=== PATIENT | female | born 1970 | race Caucasian/White ===

== ENCOUNTER → 2016-12-14 | Outpatient (REF) | payer MEDICAID ==
[~2016-12-14] MED LIST: /ESOM40CA OR; AMLO10TAB OR; CARV12.5 OR; CETI10TA OR; COLA100C2 OR; FERR325T OR; GLIP5TAB77 OR; INSULIN LANTUS SC; LISI10TA4 OR; SALINE NASAL SPRAY; ZOCO5TAB OR; [UNRECOGNIZED DRUG - OTHER] PO; lactobacillus PO; nystatin powder TOP
[2016-12-14 12:55] LABS: ALBUMIN/GLOBULIN RATIO 1.08 (1.00-1.93); ALKALINE PHOSPHATASE 93 U/L (45-117); ALT/SGPT 27 U/L (12-78); ANION GAP 7 MEQ/L (8-16); AST/SGOT 19 U/L (15-37); BILIRUBIN,TOTAL 0.6 MG/DL (0.2-1.0); BLOOD UREA NITROGEN 20 MG/DL (7-18); CALCIUM LEVEL 9.2 MG/DL (8.5-10.1); CARBON DIOXIDE LEVEL 30 MEQ/L (21-32); CHLORIDE LEVEL 102 MEQ/L (98-107); CHOLESTEROL LEVEL 138 MG/DL (<200); CREATININE FOR GFR 0.82 MG/DL (0.55-1.02); GLOMERULAR FILTRATION RATE > 60.0 (>58); GLUCOSE, FASTING 131 MG/DL (70-105); POTASSIUM SERUM 4.6 MEQ/L (3.5-5.1); SODIUM LEVEL 139 MEQ/L (136-145); TOTAL PROTEIN 7.7 GM/DL (6.4-8.2); TRIGLYCERIDES LEVEL 184 MG/DL (<150)
== END ==
LOC: M SFHCPLAZ 09:57
PROVIDERS: ATTEND Physician Assistant
DX: E78.2 Mixed hyperlipidemia (principal); E11.9 Type 2 diabetes mellitus without complications

== ENCOUNTER → 2016-12-23 | Outpatient (CLI) | payer MEDICAID ==
[2016-12-23 18:14] LABS: VITAMIN B12 LEVEL 1850 PG/ML (247-911)
[2016-12-23 18:19] LABS: ALBUMIN 3.7 GM/DL (3.2-5.2); ALBUMIN/GLOBULIN RATIO 1.09 (1.00-1.93); ALKALINE PHOSPHATASE 95 U/L (45-117); ALT/SGPT 27 U/L (12-78); ANION GAP 8 MEQ/L (8-16); AST/SGOT 21 U/L (15-37); BILIRUBIN,TOTAL 0.6 MG/DL (0.2-1.0); BLOOD UREA NITROGEN 19 MG/DL (7-18); CARBON DIOXIDE LEVEL 31 MEQ/L (21-32); CHLORIDE LEVEL 105 MEQ/L (98-107); CREATININE FOR GFR 0.83 MG/DL (0.55-1.02); FERRITIN 275 NG/ML (8-252); GLOMERULAR FILTRATION RATE > 60.0 (>58); GLUCOSE, FASTING 126 MG/DL (70-105); MAGNESIUM LEVEL 1.7 MG/DL (1.8-2.4); PHOSPHORUS LEVEL 3.4 MG/DL (2.5-4.9); POTASSIUM SERUM 4.5 MEQ/L (3.5-5.1); SODIUM LEVEL 144 MEQ/L (136-145); TOTAL PROTEIN 7.1 GM/DL (6.4-8.2)
[2016-12-23 18:45] LABS: BASO % 0.6 % (0.0-1.0); EOS % 0.6 % (0.0-3.0); LARGE UNSTAINED CELL # 0.1 K/mm3 (0.0-0.4); LARGE UNSTAINED CELL % 1.2 % (0.0-4.0); MEAN CORPUSCULAR HEMOGLOBIN 30.5 pg (27.0-33.0); MEAN CORPUSCULAR HGB CONC 33.7 g/dl (32.0-36.5); MEAN CORPUSCULAR VOLUME 90.5 fl (80.0-96.0); MONO # 0.4 K/mm3 (0.0-0.8); MONO % 4.6 % (0.0-5.0); NEUTROPHILS # 5.7 K/mm3 (1.8-7.7); PLATELET COUNT, AUTOMATED 284 k/mm3 (150-450); RED CELL DISTRIBUTION WIDTH 14.4 % (11.5-14.5); WHITE BLOOD COUNT 8.3 K/mm3 (4.0-10.0)
[2016-12-27 10:07] LABS: PRETREATED FOLATE FOR RBCFOL 15.6 NG/ML
== END ==
LOC: M WUC 10:45
PROVIDERS: ATTEND Surgery
DX: K91.2 Postsurgical malabsorption, not elsewhere classified (principal); Z98.84 Bariatric surgery status

== ENCOUNTER → 2017-02-07 | Outpatient (REF) | payer MEDICAID | LOC: M SFHCPLAZ 13:05 | PROVIDERS: ATTEND Physician Assistant | DX: E11.9 Type 2 diabetes mellitus without complications (principal) ==

== ENCOUNTER 2017-04-08 12:30 | Emergency (ER) | payer MEDICAID ==
[~2017-04-08] VITALS: Ht 160 cm; Wt 118.8 kg
[2017-04-08] MEDS ORDERED: MAGN30TA2 PO (12:40)
[2017-04-08] MEDS ORDERED: FLINCHW PO (12:40)
[2017-04-08] MEDS ORDERED: VITA100T20 PO (12:40)
[2017-04-08] MEDS ORDERED: VITA100041 PO (12:40)
[2017-04-08 13:34] LABS: BASO % 0.5 % (0.0-1.0); EOS # 0.1 K/mm3 (0.0-0.50); EOS % 1.1 % (0.0-3.0); LARGE UNSTAINED CELL # 0.1 K/mm3 (0.0-0.4); LYMPH % 19.8 % (24.0-44.0); MEAN CORPUSCULAR HGB CONC 34.8 g/dl (32.0-36.5); MEAN CORPUSCULAR VOLUME 89.1 fl (80.0-96.0); MONO # 0.5 K/mm3 (0.0-0.8); MONO % 5.4 % (0.0-5.0); NEUTROPHILS # 7.1 K/mm3 (1.8-7.7); NEUTROPHILS % 72.3 % (36.0-66.0); PLATELET COUNT, AUTOMATED 242 k/mm3 (150-450); WHITE BLOOD COUNT 9.8 K/mm3 (4.0-10.0)
[2017-04-08 13:54] LABS: ALBUMIN 3.4 GM/DL (3.2-5.2); ALBUMIN/GLOBULIN RATIO 0.97 (1.00-1.93); ALKALINE PHOSPHATASE 110 U/L (45-117); ALT/SGPT 28 U/L (12-78); ANION GAP 9 MEQ/L (8-16); AST/SGOT 18 U/L (15-37); BILIRUBIN,DIRECT 0.1 MG/DL (0.0-0.2); BILIRUBIN,TOTAL 0.3 MG/DL (0.2-1.0); BLOOD UREA NITROGEN 17 MG/DL (7-18); CALCIUM LEVEL 7.9 MG/DL (8.5-10.1); CARBON DIOXIDE LEVEL 27 MEQ/L (21-32); CHLORIDE LEVEL 106 MEQ/L (98-107); CREATININE FOR GFR 0.99 MG/DL (0.55-1.02); GLOMERULAR FILTRATION RATE > 60.0 (>58); GLUCOSE, FASTING 140 MG/DL (70-105); POTASSIUM SERUM 4.1 MEQ/L (3.5-5.1); SODIUM LEVEL 142 MEQ/L (136-145); TOTAL PROTEIN 6.9 GM/DL (6.4-8.2)
--- NOTE | 2017-04-08 14:12 | REP ---
CT BRAIN WITHOUT CONTRAST: CT brain is performed without IV contrast. The ventricles are normal in size and position. There is no midline shift. No abnormal densities are seen. Alexander-white differentiation is well maintained. There is no acute hemorrhage. There is no extra-axial fluid collection. Bone window examination is unremarkable. Visualized mastoids and paranasal sinuses appear clear. IMPRESSION: Negative noncontrast CT brain. Signed by Luis Alexander MD 04/08/2017 07:49 P
[2017-04-08] MEDS ORDERED: PRED20TA PO (14:44)
[2017-04-08] MEDS ORDERED: ACYC1CAP8 PO (14:45)
[2017-04-08] MEDS ORDERED: LACROIN OP (14:47)
[2017-04-08 14:52] VITALS: BP 136/77
--- NOTE | 2017-04-08 16:48 | ECGEPIP ---
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
[2017-04-12 00:06] LABS: Lyme Disease IgG/IgM Antibodie <0.91 ISR (0.00-0.90); Lyme Disease IgM Ab Quantitati <0.80 index (0.00-0.79)
== END 2017-04-08 14:58 | disposition home or self-care (01) ==
LOC: M ED 13:48
DX: G51.0 Bell's palsy (principal)

== ENCOUNTER → 2017-05-18 | Outpatient (CLI) | payer OTHER ==
[~2017-05-18] MED LIST changes: +ACYC1CAP8 PO; +FLINCHW PO; +LACROIN OP; +MAGN30TA2 PO; +PRED20TA PO; +VITA100041 PO; +VITA100T20 PO
== END ==
LOC: M WUC 10:57
PROVIDERS: ATTEND Psychiatry & Neurology Neurology
DX: H04.129 Dry eye syndrome of unspecified lacrimal gland (principal)

== ENCOUNTER 2017-07-06 14:04 | Emergency (ER) | payer OTHER ==
[~2017-07-06] VITALS: Ht 160 cm; Wt 131.6 kg
[~2017-07-06 14:04] MED LIST changes: -ACYC1CAP8 PO; +ACYC200C8 PO; +VITA-182 PO; -VITA100041 PO
[2017-07-06] MEDS ORDERED: ALLO10TA PO (14:27)
[2017-07-06] MEDS ORDERED: LISI10TA4 PO (14:40)
[2017-07-06] MEDS ORDERED: CORE6.25 PO (14:40)
[2017-07-06] MEDS ORDERED: CARVedilol 6.25 MG TAB PO ONE (15:15)
[2017-07-06] MEDS ORDERED: LISINOPRIL 10 MG TAB PO ONE (15:15)
[2017-07-06 15:24] VITALS: BP 195/81
[2017-07-06 15:41] VITALS: BP 140/67
== END 2017-07-06 15:59 | disposition home or self-care (01) ==
LOC: M ED 14:04
DX: I10 Essential (primary) hypertension (principal); Z91.14 Patient's other noncompliance with medication regimen; E11.9 Type 2 diabetes mellitus without complications; Z98.84 Bariatric surgery status

== ENCOUNTER 2017-09-14 09:03 | Emergency (ER) | payer OTHER ==
[~2017-09-14] VITALS: Ht 160 cm; Wt 123.6 kg
[~2017-09-14 09:03] MED LIST changes: +ALLO10TA PO; +CORE6.25 PO; +LISI10TA4 PO
[2017-09-14] MEDS ORDERED: POTA10TAB PO (09:26)
[2017-09-14] MEDS ORDERED: ACETAMINOPHEN TAB 650MG DOSE (2X325MG) PO ONE (10:15)
--- NOTE | 2017-09-14 11:08 | REP ---
Right lower extremity Duplex Doppler venous ultrasound: Real time compression and duplex Doppler interrogation of the right lower extremity deep venous system is performed. The right common femoral, superficial femoral and popliteal veins are fully compressible with transducer pressure and demonstrate normal spontaneous and phasic flow, without evidence of deep venous thrombosis. Impression: No evidence of deep venous thrombosis of the right lower extremity femoral popliteal venous system. Signed by Luis Alexander MD 09/14/2017 11:00 A
--- NOTE | 2017-09-14 12:35 | REP ---
RIGHT ANKLE, FOUR VIEWS: HISTORY: Swelling. COMPARISON: 07/22/2015. There is no acute fracture or dislocation. The joint space is normal in appearance. Osteophytes are present on the medial malleolus and inferior and posterior calcaneus. An accessory ossicle is present adjacent to the medial malleolus. Soft tissue swelling is present. IMPRESSION: Degenerative change as described above. Signed by Jarrod Christensen MD 09/14/2017 01:29 P
[2017-09-14 12:39] LABS: MEAN CORPUSCULAR HEMOGLOBIN 30.2 pg (27.0-33.0); MEAN CORPUSCULAR HGB CONC 34.6 g/dl (32.0-36.5); MEAN CORPUSCULAR VOLUME 87.2 fl (80.0-96.0); PLATELET COUNT, AUTOMATED 362 10^3/uL (150-450); RED CELL DISTRIBUTION WIDTH 14.1 % (11.5-14.5); WHITE BLOOD COUNT 12.9 10^3/uL (4.0-10.0)
[2017-09-14 12:51] LABS: INR 1.01
[2017-09-14 13:16] LABS: ANION GAP 4 MEQ/L (8-16); BLOOD UREA NITROGEN 23 MG/DL (7-18); CALCIUM LEVEL 9.5 MG/DL (8.5-10.1); CARBON DIOXIDE LEVEL 31 MEQ/L (21-32); CHLORIDE LEVEL 102 MEQ/L (98-107); CREATININE FOR GFR 0.85 MG/DL (0.55-1.02); GLOMERULAR FILTRATION RATE > 60.0 (>58); GLUCOSE, FASTING 164 MG/DL (70-105); MAGNESIUM LEVEL 1.7 MG/DL (1.8-2.4); POTASSIUM SERUM 4.5 MEQ/L (3.5-5.1); SODIUM LEVEL 137 MEQ/L (136-145)
[2017-09-14] MEDS ORDERED: ROBA500T PO (13:44)
[2017-09-14] MEDS ORDERED: METHOCARBAMOL 500 MG TAB PO ONE (14:00)
[2017-09-14 14:12] VITALS: BP 117/77
== END 2017-09-14 14:29 | disposition home or self-care (01) ==
LOC: M ED 09:03
DX: K31.89 Other diseases of stomach and duodenum (principal); M25.571 Pain in right ankle and joints of right foot; R73.9 Hyperglycemia, unspecified; Z98.84 Bariatric surgery status

== ENCOUNTER → 2017-09-20 | Outpatient (REF) | payer OTHER ==
[~2017-09-20] MED LIST changes: +POTA10TAB PO; +ROBA500T PO
== END ==
LOC: M SFHCPLAZ 15:18
PROVIDERS: ATTEND Family Medicine
DX: E83.42 Hypomagnesemia (principal)

== ENCOUNTER 2017-10-31 07:25 | Emergency (ER) | payer OTHER ==
[~2017-10-31] VITALS: Ht 160 cm; Wt 131.8 kg
[2017-10-31] MEDS ORDERED: TESS100C PO (09:02)
[2017-10-31 09:11] VITALS: BP 149/88
== END 2017-10-31 09:14 | disposition home or self-care (01) ==
LOC: M ED 07:25
DX: J06.9 Acute upper respiratory infection, unspecified (principal); E11.9 Type 2 diabetes mellitus without complications; Z87.09 Personal history of other diseases of the respiratory system; Z98.84 Bariatric surgery status; Z79.899 Other long term (current) drug therapy

== ENCOUNTER → 2018-02-14 | Outpatient (REF) | payer OTHER ==
[2018-02-14 11:43] LABS: ANION GAP 11 MEQ/L (8-16); BLOOD UREA NITROGEN 14 MG/DL (7-18); CALCIUM LEVEL 8.2 MG/DL (8.5-10.1); CARBON DIOXIDE LEVEL 24 MEQ/L (21-32); CHLORIDE LEVEL 106 MEQ/L (98-107); CREATININE FOR GFR 0.73 MG/DL (0.55-1.30); GLOMERULAR FILTRATION RATE > 60.0 (>58); GLUCOSE, FASTING 243 MG/DL (70-100); MAGNESIUM LEVEL 1.2 MG/DL (1.8-2.4); POTASSIUM SERUM 4.3 MEQ/L (3.5-5.1); SODIUM LEVEL 141 MEQ/L (136-145)
[2018-02-14 11:48] LABS: ESTIMATED AVERAGE GLUCOSE 166 MG/DL (60-110); HEMOGLOBIN A1c 7.4 %
== END ==
LOC: M SFHCPLAZ 10:10
DX: E11.9 Type 2 diabetes mellitus without complications (principal); E83.42 Hypomagnesemia

== ENCOUNTER → 2018-02-21 | Outpatient (REF) | payer OTHER ==
[2018-02-21 13:32] LABS: IONIZED CALCIUM 4.6 MG/DL (4.5-5.3)
[2018-02-21 14:11] LABS: ANION GAP 9 MEQ/L (8-16); BLOOD UREA NITROGEN 22 MG/DL (7-18); CALCIUM LEVEL 8.7 MG/DL (8.5-10.1); CARBON DIOXIDE LEVEL 24 MEQ/L (21-32); CHLORIDE LEVEL 104 MEQ/L (98-107); CREATININE FOR GFR 0.67 MG/DL (0.55-1.30); GLOMERULAR FILTRATION RATE > 60.0 (>58); GLUCOSE, FASTING 187 MG/DL (70-100); MAGNESIUM LEVEL 1.4 MG/DL (1.8-2.4); POTASSIUM SERUM 4.6 MEQ/L (3.5-5.1); SODIUM LEVEL 137 MEQ/L (136-145)
== END ==
LOC: M SFHCPLAZ 12:08
DX: E83.42 Hypomagnesemia (principal)
CPT/HCPCS: 36415

== ENCOUNTER 2018-03-30 16:27 | Emergency (ER) | payer OTHER ==
[2018-03-30] MEDS: NORCO, ANEXSIA 5/325MG TABLET (HYDROcodone/ACETAMINOPHEN) PO (16:42)
== END 2018-03-30 17:33 | disposition home or self-care (01) ==
LOC: M ED 16:27
DX: S83.92XA Sprain of unspecified site of left knee, initial encounter (principal); X50.9XXA Other and unspecified overexertion or strenuous movements or postures, initial encounter; Y92.009 Unspecified place in unspecified non-institutional (private) residence as the place of occurrence of the external cause; I10 Essential (primary) hypertension; E11.9 Type 2 diabetes mellitus without complications; Z86.69 Personal history of other diseases of the nervous system and sense organs; Z98.0 Intestinal bypass and anastomosis status; Z83.3 Family history of diabetes mellitus; Z79.899 Other long term (current) drug therapy
CPT/HCPCS: 73564

== ENCOUNTER 2018-08-10 16:37 | Emergency (ER) | payer OTHER ==
[2018-08-10] MEDS: BENZONATATE 100 MG CAP PO (20:50)
[2018-08-10] MEDS: dexameTHASONE 4 MG/ML 1ML VIAL (J1100) PO (20:50)
== END 2018-08-10 21:02 | disposition home or self-care (01) ==
LOC: M ED 16:37
DX: J06.9 Acute upper respiratory infection, unspecified (principal); I10 Essential (primary) hypertension; E11.9 Type 2 diabetes mellitus without complications; G51.0 Bell's palsy; J32.9 Chronic sinusitis, unspecified; G47.33 Obstructive sleep apnea (adult) (pediatric); Z79.899 Other long term (current) drug therapy; Z79.2 Long term (current) use of antibiotics
CPT/HCPCS: J1100

== ENCOUNTER 2018-11-23 10:26 | Emergency (ER) | payer OTHER ==
[~2018-11-23] VITALS: Ht 160 cm; Wt 135.4 kg
[~2018-11-23 10:26] MED LIST changes: +AMMO12LO; +CLIN1LOT; +FLON1SPR NARES; +KETO2CR; +KETO2SH; +MAGICMW SS; +MINO100C4 PO; +NORCOTAB PO; +NU-M1TAB PO; +POTA10808 PO; -POTA10TAB PO; +ROLLMIS2 XX; +TESS100C PO
[2018-11-23 10:27] VITALS: BP 118/59
[2018-11-23] MEDS ORDERED: GABA-845 PO (10:50)
--- NOTE | 2018-11-23 11:26 | REP ---
Clinical: Trauma/fall. Comparison: 09/14/2017 Technique: AP, lateral, bilateral oblique views of the right ankle. Findings: Diffuse swelling is appreciated. Small bony fragments are identified at the medial malleolus and to a lesser extent the lateral malleolus which remain stable compared to prior examination and consistent with old injuries. No further obvious acute fracture identified. Ankle mortise intact. Lateral view demonstrates small calcaneal heal spur. Impression: Soft-tissue swelling. Evidence for old injuries. No acute fracture or dislocation identified. Electronically Signed by Ok Mohamud MD 11/23/2018 11:17 A
[2018-11-23] MEDS ORDERED: ACETAMINOPHEN 325 MG TAB PO ONE (11:30)
== END 2018-11-23 11:50 | disposition home or self-care (01) ==
LOC: M ED 10:26
DX: S99.911A Unspecified injury of right ankle, initial encounter (principal); X50.9XXA Other and unspecified overexertion or strenuous movements or postures, initial encounter; Y92.018 Other place in single-family (private) house as the place of occurrence of the external cause; I10 Essential (primary) hypertension; E11.9 Type 2 diabetes mellitus without complications; Z98.84 Bariatric surgery status; Z79.899 Other long term (current) drug therapy; Z91.048 Other nonmedicinal substance allergy status

== ENCOUNTER → 2019-01-30 | Outpatient (CLI) | payer OTHER ==
[~2019-01-30] MED LIST changes: +GABA-845 PO
--- NOTE | 2019-01-30 14:27 | REP ---
MRI RIGHT ANKLE: TECHNIQUE: Sagittal proton density, STIR, axial proton density fat sat, T1, coronal proton density, STIR. Correlation to prior plain films . The Achilles, anterior tibial, posterior tibial, flexor hallucis longus, flexor digitorum longus and peroneal tendons all appear to be intact. However, there is mild fluid surrounding the peroneal tendon suggesting mild tenosynovitis. Anterior talofibular ligament is ill-defined with mild increased signal suggesting a prior tear, at least a partial tear. Posterior talofibular and calcaneofibular ligaments appear intact. Deltoid ligament demonstrates mild diffuse increased signal suggesting a sprain. Old avulsion fractures are seen at both malleoli. Plantar tendon is intact with no abnormal signal. There is a mild effusion at the tibiotalar joint. There is mild diffuse soft tissue edema, which is a nonspecific findings. There is no ganglion cyst. There is mild marrow edema in the medial and lateral malleoli. There is also mild subchondral marrow edema in the lateral talar dome overlying cartilaginous thinning. This may represent a stage I osteochondral lesion. IMPRESSION: Mild fluid around the peroneal tendons may indicate tenosynovitis. Abnormal signal in the anterior talofibular ligament suggesting at least a prior partial tear. Increased signal in the deltoid ligament suggests a sprain or prior partial tear. There are old avulsion fractures of the medial and lateral malleoli with associated marrow edema at these locations. Chondromalacia along the talar dome with subchondral marrow edema in the lateral talar dome. This may indicate a stage I osteochondral lesion. Electronically Signed by Luis Alexander MD 01/30/2019 11:33 P
== END ==
LOC: M RAD 12:40
PROVIDERS: ATTEND Family Medicine
DX: M25.371 Other instability, right ankle (principal); M94.261 Chondromalacia, right knee; Z87.81 Personal history of (healed) traumatic fracture

== ENCOUNTER → 2019-05-13 | Outpatient (CLI) | payer OTHER ==
[~2019-05-13] MED LIST changes: -/ESOM40CA OR; +HYDR-3715 PO; -KETO2SH; +KETO2SHA9; +NEXI1CAP3 OR; -NORCOTAB PO; -VITA100T20 PO; +VITA100T51 PO
[2019-05-13 13:54] LABS: ALBUMIN 3.5 GM/DL (3.2-5.2); ALT/SGPT 50 U/L (12-78); BILIRUBIN,TOTAL 0.5 MG/DL (0.2-1.0); BLOOD UREA NITROGEN 30 MG/DL (7-18); CALCIUM LEVEL 9.7 MG/DL (8.5-10.1); CARBON DIOXIDE LEVEL 31 MEQ/L (21-32); CHLORIDE LEVEL 101 MEQ/L (98-107); CHOLESTEROL LEVEL 184 MG/DL (<200); CHOLESTEROL RISK RATIO 4.972 (<5); CREATININE FOR GFR 0.93 MG/DL (0.55-1.30); GLOMERULAR FILTRATION RATE > 60.0 (>58); GLUCOSE, FASTING 306 MG/DL (70-100); HDL CHOLESTEROL 37 MG/DL (>40); NON-HDL-C 147 MG/DL; POTASSIUM SERUM 5.3 MEQ/L (3.5-5.1); SODIUM LEVEL 137 MEQ/L (136-145); TOTAL PROTEIN 7.2 GM/DL (6.4-8.2); TRIGLYCERIDES LEVEL 419 MG/DL (<150)
== END ==
LOC: M WUC 09:05
PROVIDERS: ATTEND Physician Assistant
DX: I11.9 Hypertensive heart disease without heart failure (principal); E78.2 Mixed hyperlipidemia

== ENCOUNTER → 2019-05-13 | Outpatient (CLI) | payer OTHER ==
[2019-05-13 13:35] LABS: CALCIUM LEVEL 9.4 MG/DL (8.5-10.1); CHOLESTEROL LEVEL 195 MG/DL (<200); HDL CHOLESTEROL 39 MG/DL (>40); MAGNESIUM LEVEL 2.3 MG/DL (1.8-2.4); NON-HDL-C 156 MG/DL; TRIGLYCERIDES LEVEL 414 MG/DL (<150); URIC ACID 6.2 MG/DL (2.6-6.0)
[2019-05-13 13:51] LABS: BASO # 0.1 10^3/uL (0.0-0.2); BASO % 0.8 % (0.0-1.0); EOS # 0.1 10^3/uL (0.0-0.50); HEMATOCRIT 42.5 % (36.0-47.0); HEMOGLOBIN 14.2 g/dl (12.0-15.5); LYMPH # 1.4 10^3/uL (1.5-4.5); LYMPH % 19.6 % (24.0-44.0); MEAN CORPUSCULAR HEMOGLOBIN 30.4 pg (27.0-33.0); MEAN CORPUSCULAR HGB CONC 33.4 g/dl (32.0-36.5); MONO # 0.6 10^3/uL (0.0-0.8); MONO % 7.9 % (0.0-5.0); PLATELET COUNT, AUTOMATED 228 10^3/uL (150-450); RED BLOOD COUNT 4.67 10^6/uL (4.00-5.40); WHITE BLOOD COUNT 7.2 10^3/uL (4.0-10.0)
[2019-05-13 14:02] LABS: MALB URINE SIEMENS 51.7 MG/L; MAU/CREAT RATIO 36.1 MCG/MG (0.0-30.0)
[2019-05-13 14:15] LABS: HEMOGLOBIN A1c 8.7 %
== END ==
LOC: M WUC 09:00
PROVIDERS: ATTEND Family Medicine
DX: R25.2 Cramp and spasm (principal); E11.65 Type 2 diabetes mellitus with hyperglycemia; E78.2 Mixed hyperlipidemia; Z87.442 Personal history of urinary calculi; E72.53 Primary hyperoxaluria; Z86.2 Personal history of diseases of the blood and blood-forming organs and certain disorders involving the immune mechanism

== ENCOUNTER → 2020-01-18 | Outpatient (REF) | payer OTHER | LOC: M LAB REF 11:31 | PROVIDERS: ATTEND Physician Assistant Medical | DX: J11.1 Influenza due to unidentified influenza virus with other respiratory manifestations (principal) ==

== ENCOUNTER → 2020-02-03 | Outpatient (CLI) | payer OTHER ==
--- NOTE | 2020-02-03 11:33 | REPMRS ---
Patient History The patient states she had a clinical breast exam in January 2020. Family history of breast cancer at age 50 or over in maternal aunt. Digital Woman Screen Mammo: February 03, 2020 - Exam #: [id number] Bilateral CC and MLO view(s) were taken. Technologist: Sandra Rowe, Technologist Prior study comparison: September 15, 2014, digital woman screen mammo performed at [facility]. January 28, 2013, digital woman screen mammo performed at [facility]. January 05, 2007, bilateral screening mammogram performed at [facility]. FINDINGS: There are scattered fibroglandular densities. There is a moderate amount of residual fibroglandular tissue which is fairly symmetric. There is no interval development of dominant mass, architectural distortion, or grouped microcalcification typical of malignancy. There has been no change in the appearance of the mammogram from the prior studies. 3-D tomosynthesis shows no additional findings. Assessment: BI-RADS/ACR category 1 mammogram. Negative Mammogram. Recommendation Routine screening mammogram of both breasts in 1 year (for women over age 40). This patient's Lifetime Breast Cancer RIsk is estimated at 18.5 %. This mammogram was interpreted with the aid of an FDA-approved computer-aided dectection system. Electronically Signed By: Emory Grajeda MD 02/03/20 2141
== END ==
LOC: M WHC 10:22
PROVIDERS: ATTEND Nurse Practitioner Family
DX: Z12.31 Encounter for screening mammogram for malignant neoplasm of breast (principal); Z12.4 Encounter for screening for malignant neoplasm of cervix; R87.618 Other abnormal cytological findings on specimens from cervix uteri

== ENCOUNTER → 2020-07-14 | Outpatient (REF) | payer OTHER ==
[~2020-07-14] MED LIST changes: +KETO2SHA8; -KETO2SHA9
[2020-09-07 03:48] LABS: ALBUMIN 3.2 GM/DL (3.2-5.2); BLOOD UREA NITROGEN 23 MG/DL (7-18); CALCIUM LEVEL 8.8 MG/DL (8.5-10.1); CARBON DIOXIDE LEVEL 26 MEQ/L (21-32); CHLORIDE LEVEL 107 MEQ/L (98-107); CREATININE FOR GFR 0.86 MG/DL (0.55-1.30); GLOMERULAR FILTRATION RATE > 60.0 (>58); GLUCOSE, FASTING 257 MG/DL (70-100); PHOSPHORUS LEVEL 3.5 MG/DL (2.5-4.9); POTASSIUM SERUM 4.5 MEQ/L (3.5-5.1); SODIUM LEVEL 140 MEQ/L (136-145); TOTAL 25(OH) VITAMIN D 18.7 NG/ML (30.0-100.0)
== END ==
LOC: M PLALAB 12:04
PROVIDERS: ATTEND Internal Medicine Nephrology
DX: N20.0 Calculus of kidney (principal); R82.992 Hyperoxaluria

== ENCOUNTER → 2020-07-14 | Outpatient (REF) | payer OTHER ==
[2020-09-07 03:47] LABS: BLOOD UREA NITROGEN 23 MG/DL (7-18); CALCIUM LEVEL 8.8 MG/DL (8.5-10.1); CARBON DIOXIDE LEVEL 27 MEQ/L (21-32); CHLORIDE LEVEL 105 MEQ/L (98-107); CREATININE FOR GFR 0.87 MG/DL (0.55-1.30); GLOMERULAR FILTRATION RATE > 60.0 (>58); GLUCOSE, FASTING 261 MG/DL (70-100); POTASSIUM SERUM 4.5 MEQ/L (3.5-5.1); SODIUM LEVEL 140 MEQ/L (136-145)
[2020-09-07 03:48] LABS: ALBUMIN 3.2 GM/DL (3.2-5.2); ALT/SGPT 28 U/L (12-78); BILIRUBIN,TOTAL 0.3 MG/DL (0.2-1.0); CHOLESTEROL LEVEL 109 MG/DL (<200); CHOLESTEROL RISK RATIO 2.369 (<5); HDL CHOLESTEROL 46 MG/DL (>40); LDL CHOLESTEROL 20 MG/DL (<100); NON-HDL-C 63 MG/DL; TOTAL PROTEIN 6.7 GM/DL (6.4-8.2); TRIGLYCERIDES LEVEL 215 MG/DL (<150)
== END ==
LOC: M PLALAB 12:01
PROVIDERS: ATTEND Physician Assistant
DX: I11.9 Hypertensive heart disease without heart failure (principal); E78.2 Mixed hyperlipidemia

== ENCOUNTER → 2020-09-18 | Outpatient (CLI) | payer OTHER ==
--- NOTE | 2020-09-18 08:19 | REP ---
INDICATION: TYPE 2 DIABETES, CHRONIC ULCER OF THE OTHER PART LEFT FOOT COMPARISON: None. TECHNIQUE: AP, lateral, bilateral oblique views . FINDINGS: Generalized soft tissue swelling suggested. The osseous structures and joint spaces are intact and there is no evidence for acute fracture or dislocation. No subcutaneous emphysema or radiodense foreign body. IMPRESSION: Soft tissue swelling.. <Electronically signed by Ok Mohamud > 09/18/20 [id number]
== END ==
LOC: M RAD 07:52
PROVIDERS: ATTEND Surgery
DX: R22.42 Localized swelling, mass and lump, left lower limb (principal)

== ENCOUNTER → 2020-10-05 | Outpatient (CLI) | payer OTHER ==
--- NOTE | 2020-10-08 12:12 | SLEEPCENT ---
DATE: 10/05/2020 ORDERED BY: Anamaria Montalvo Nocturnal polysomnography was performed for retitration of pressure therapy in this patient with a history of obstructive sleep apnea syndrome, who has accomplished significant weight loss. For testing, a ResMed AirFit F20 full-face mask of medium size was used. There was 8 cm of water pressure initially applied to the circuit, and the lights were extinguished. There was 7 hours and 46 minutes of data reviewed. There was 434 minutes of sleep identified. Sleep latency was normal at 10 minutes. REM latency was delayed at 160 minutes. Sleep architecture improved with optimal pressure therapy. There were four REM cycles noted. Overall sleep efficiency was 94.5%. The electrocardiogram showed a sinus rhythm with an average heart rate of 68 beats per minute. EEG showed normal waveforms for wake and sleep. Respiratory events ere fully palliated with CPAP at a pressure of +9. There was significant limb activity throughout the study. Limb movement arousal index was 7.1. IMPRESSION: Obstructive sleep apnea syndrome (G47.33). RECOMMENDATION: Nightly use of pressure therapy 9 cm of water. MTDD
== END ==
LOC: M SLEEP 20:00
PROVIDERS: ATTEND Nurse Practitioner Adult Health
DX: G47.33 Obstructive sleep apnea (adult) (pediatric) (principal)

== ENCOUNTER → 2021-03-05 | Outpatient (REF) | payer OTHER ==
[~2021-03-05] MED LIST changes: +LISI10TA22 PO; -LISI10TA4 PO
[2021-03-05 10:24] LABS: BASO % 0.5 % (0.0-1.0); EOS # 0.1 10^3/uL (0.0-0.5); EOS % 0.6 % (0.0-3.0); HEMATOCRIT 42.6 % (36.0-47.0); HEMOGLOBIN 14.1 g/dl (12.0-15.5); LYMPH # 1.5 10^3/uL (1.5-5.0); LYMPH % 17.2 % (24.0-44.0); MEAN CORPUSCULAR HEMOGLOBIN 28.8 pg (27.0-33.0); MEAN CORPUSCULAR HGB CONC 33.1 g/dl (32.0-36.5); MEAN CORPUSCULAR VOLUME 86.9 fl (80.0-96.0); MONO # 0.6 10^3/uL (0.0-0.8); MONO % 6.7 % (2.0-8.0); NEUTROPHILS # 6.4 10^3/uL (1.5-8.5); NEUTROPHILS % 74.4 % (36.0-66.0); PLATELET COUNT, AUTOMATED 217 10^3/uL (150-450); WHITE BLOOD COUNT 8.5 10^3/uL (4.0-10.0)
[2021-03-05 10:45] LABS: HEMOGLOBIN A1c 8.7 %
[2021-03-05 10:59] LABS: ALBUMIN 3.5 GM/DL (3.2-5.2); ALT/SGPT 40 U/L (12-78); BILIRUBIN,TOTAL 0.3 MG/DL (0.2-1.0); BLOOD UREA NITROGEN 22 MG/DL (7-18); CALCIUM LEVEL 9.2 MG/DL (8.5-10.1); CARBON DIOXIDE LEVEL 30 MEQ/L (21-32); CHLORIDE LEVEL 101 MEQ/L (98-107); CHOLESTEROL LEVEL 146 MG/DL (<200); CHOLESTEROL RISK RATIO 3.476 (<5); CREATININE FOR GFR 0.95 MG/DL (0.55-1.30); GLOMERULAR FILTRATION RATE > 60.0 (>58); GLUCOSE, FASTING 339 MG/DL (70-100); HDL CHOLESTEROL 42 MG/DL (>40); LDL CHOLESTEROL 52 MG/DL (<100); NON-HDL-C 104 MG/DL; POTASSIUM SERUM 4.6 MEQ/L (3.5-5.1); SODIUM LEVEL 136 MEQ/L (136-145); TRIGLYCERIDES LEVEL 261 MG/DL (<150); VITAMIN B12 LEVEL 491 PG/ML (247-911)
== END ==
LOC: M PLALAB 08:10
PROVIDERS: ATTEND Nurse Practitioner Family
DX: E11.65 Type 2 diabetes mellitus with hyperglycemia (principal); E78.2 Mixed hyperlipidemia; Z98.84 Bariatric surgery status

== ENCOUNTER → 2021-03-30 | Outpatient (REF) | payer OTHER ==
[~2021-03-30] MED LIST changes: +ADME100I2; +ALOG25TA; +ATOR40TA75; +BASA100I; +BECA1GEL; +LINE1TAB6 PO; +POTA10808
== END ==
LOC: M SFHCWAGY 17:04
PROVIDERS: ATTEND Obstetrics & Gynecology
DX: Z12.4 Encounter for screening for malignant neoplasm of cervix (principal); R87.610 Atypical squamous cells of undetermined significance on cytologic smear of cervix (ASC-US)

== ENCOUNTER → 2021-03-30 | Outpatient (CLI) | payer OTHER ==
--- NOTE | 2021-03-30 12:40 | REPMRS ---
Patient History The patient states she had a clinical breast exam on 03-30-2021. Patient is postmenopausal and is nulliparous. Family history of breast cancer at age 50 or over in maternal aunt. No Hormone Replacement Therapy Patient states no breast complaints today. Digital Woman Screen Mammo: March 30, 2021 - Exam #: [id number] Bilateral CC and MLO view(s) were taken. Technologist: Cele Alcantara, Financial Accounting Manager Prior study comparison: February 03, 2020, bilateral digital woman screen mammo performed at [facility]. September 15, 2014, digital woman screen mammo performed at [facility]. FINDINGS: There are scattered fibroglandular densities. Screening. Digital screening (2D) mammography was performed bilaterally in the CC and MLO projections. Additionally, breast tomosynthesis (3D mammography) was performed bilaterally in the CC and MLO projections. Todays exam was compared to the prior exams(s). By history, the patient has no complaints of a palpable breast abnormality or other significant breast complaints. The breasts are unchanged in size and shape. Once again, dense heterogenous nodular fibroglandular elements are seen bilaterally in a stable appearing pattern but to such a degree that the sensitivity of the mammogram in detecting cancer is somewhat decreased.There are no sung-soft tissue densities or spiculated masses. There is no internal architectural distortion. There are no suspicious sung-calcific clusters. Skin thickening or nipple retraction is not present.Once again, stable benign appearing calcifications are seen. IMPRESSION: BI-RADS Category 2- Benign Findings(s). There is no evidence of malignant alteration of the breasts. Followup examination recommended in one year. This mammogram was read with the assistance of [facility] [employer],an FDA approved computer aided detection system for mammography. The Volpara volumetric breast density category is B, there are scattered areas of fibroglandular density. Negative x-ray reports should not delay surgical consultation if a dominant or clinically suspicious mass is present. The lifetime Tyrer-Cuzick score is 17.8 % Not all breast cancers can be identified by mammography. Therefore, we recommend that you continue to perform regular breast self-examination and physical examination and then promptly contact your physician of any concerns or changes. Adenosis and dense breasts may obscure an underlying neoplasm. Assessment: BI-RADS/ACR category 2 mammogram. Benign Findings. Recommendation Routine screening mammogram of both breasts in 1 year. Electronically Signed By: Nino Corona DO 03/30/21 [id number]
== END ==
LOC: M WHC 10:55
PROVIDERS: ATTEND Obstetrics & Gynecology
DX: Z12.39 Encounter for other screening for malignant neoplasm of breast (principal); Z78.0 Asymptomatic menopausal state

== ENCOUNTER → 2021-03-30 | Outpatient (CLI) | payer OTHER | LOC: M WHC 12:06 | PROVIDERS: ATTEND Obstetrics & Gynecology | DX: Z53.29 Procedure and treatment not carried out because of patient's decision for other reasons (principal); Z01.419 Encounter for gynecological examination (general) (routine) without abnormal findings ==

== ENCOUNTER 2021-03-31 07:53 | Emergency (ER) | payer OTHER ==
[~2021-03-31] VITALS: Ht 160 cm; Wt 129.9 kg
[~2021-03-31 07:53] MED LIST changes: -ADME100I2; -ALOG25TA; -ATOR40TA75; -BASA100I; -BECA1GEL; -LINE1TAB6 PO; -POTA10808
[2021-03-31] MEDS ORDERED: ALOG25TA (08:02)
[2021-03-31] MEDS ORDERED: POTA10808 (08:02)
[2021-03-31] MEDS ORDERED: ATOR40TA75 (08:02)
[2021-03-31] MEDS ORDERED: ADME100I2 (08:02)
[2021-03-31] MEDS ORDERED: BASA100I (08:02)
[2021-03-31] MEDS ORDERED: BECA1GEL (08:02)
[2021-03-31] MEDS ORDERED: KETO2SHA8 (08:02)
[2021-03-31 08:48] LABS: BASO # 0.1 10^3/uL (0.0-0.2); BASO % 0.6 % (0.0-1.0); EOS # 0.1 10^3/uL (0.0-0.5); EOS % 0.5 % (0.0-3.0); HEMATOCRIT 38.8 % (36.0-47.0); HEMOGLOBIN 12.9 g/dl (12.0-15.5); LYMPH # 1.8 10^3/uL (1.5-5.0); LYMPH % 18.1 % (24.0-44.0); MEAN CORPUSCULAR HGB CONC 33.2 g/dl (32.0-36.5); MEAN CORPUSCULAR VOLUME 87.2 fl (80.0-96.0); MONO # 0.7 10^3/uL (0.0-0.8); MONO % 7.6 % (2.0-8.0); NEUTROPHILS % 72.2 % (36.0-66.0); PLATELET COUNT, AUTOMATED 218 10^3/uL (150-450); RED BLOOD COUNT 4.45 10^6/uL (4.00-5.40); WHITE BLOOD COUNT 9.7 10^3/uL (4.0-10.0)
[2021-03-31 09:06] LABS: ERYTHROCYTE SEDIMENTATION RATE 43 mm/hr (0-20)
[2021-03-31 09:17] LABS: ALBUMIN 3.4 GM/DL (3.2-5.2); ALT/SGPT 28 U/L (12-78); BILIRUBIN,DIRECT 0.1 MG/DL (0.0-0.2); BILIRUBIN,TOTAL 0.5 MG/DL (0.2-1.0); BLOOD UREA NITROGEN 23 MG/DL (7-18); C REACTIVE PROTEIN QUANTITATIV 0.98 MG/DL (0.00-0.30); CALCIUM LEVEL 8.8 MG/DL (8.5-10.1); CARBON DIOXIDE LEVEL 28 MEQ/L (21-32); CHLORIDE LEVEL 104 MEQ/L (98-107); CREATININE FOR GFR 0.88 MG/DL (0.55-1.30); GLOMERULAR FILTRATION RATE > 60.0 (>58); GLUCOSE, FASTING 282 MG/DL (70-100); POTASSIUM SERUM 4.5 MEQ/L (3.5-5.1); SODIUM LEVEL 137 MEQ/L (136-145); TOTAL PROTEIN 6.9 GM/DL (6.4-8.2)
[2021-03-31] MEDS ORDERED: VANCOMYCIN HCL 2,000 MG in D5W 500 ML IV ONE (09:35)
[2021-03-31] MEDS ORDERED: NS 1,000 ML IV ONE (09:35)
--- NOTE | 2021-03-31 09:53 | REP ---
INDICATION: wound to L 1st toe COMPARISON: None. TECHNIQUE: AP, lateral, bilateral oblique views left 1st toe. FINDINGS: No obvious acute fracture. Bandage material limits evaluation and subcutaneous emphysema related to possible soft tissue injury cannot definitively be excluded. No foreign body. IMPRESSION: Limited examination.. No definite acute fracture or dislocation. <Electronically signed by Ok Mohamud > 03/31/21 0952
[2021-03-31] MEDS ORDERED: VANCOMYCIN HCL 1,000 MG, VIAL MATE ADAPTER 1 EACH in NS 250 ML IV ONE ×6 (10:00)
[2021-03-31 12:53] VITALS: BP 94/55
[2021-03-31] MEDS ORDERED: LINE1TAB6 PO (13:06)
== END 2021-03-31 13:23 | disposition home or self-care (01) ==
LOC: M ED 07:53
DX: E11.622 Type 2 diabetes mellitus with other skin ulcer (principal); L97.529 Non-pressure chronic ulcer of other part of left foot with unspecified severity; G62.9 Polyneuropathy, unspecified; I10 Essential (primary) hypertension; E78.5 Hyperlipidemia, unspecified; G47.33 Obstructive sleep apnea (adult) (pediatric); E66.9 Obesity, unspecified; Z86.14 Personal history of Methicillin resistant Staphylococcus aureus infection; Z86.718 Personal history of other venous thrombosis and embolism; Z86.69 Personal history of other diseases of the nervous system and sense organs; Z98.84 Bariatric surgery status; Z91.048 Other nonmedicinal substance allergy status; Z79.899 Other long term (current) drug therapy; Z79.4 Long term (current) use of insulin
CPT/HCPCS: 73660; 80048; 80076; 83605; 85025; 85652; 86140; 87040; 96365; 96366; 99283; J3370

== ENCOUNTER → 2021-04-28 | Outpatient (REF) | payer OTHER ==
[~2021-04-28] MED LIST changes: +ADME100I2; +ALOG25TA; +ATOR40TA75; +BASA100I; +BECA1GEL; +GABA-283 PO; -GABA-845 PO; +LINE1TAB6 PO; +POTA10808
== END ==
LOC: M PLALAB 14:01
PROVIDERS: ATTEND Obstetrics & Gynecology
DX: N90.89 Other specified noninflammatory disorders of vulva and perineum (principal)

== ENCOUNTER → 2021-04-28 | Outpatient (REF) | payer OTHER | LOC: M SFHCWAGY 18:46 | PROVIDERS: ATTEND Obstetrics & Gynecology | DX: N90.89 Other specified noninflammatory disorders of vulva and perineum (principal) ==

== ENCOUNTER → 2021-09-07 | Outpatient (CLI) | payer OTHER ==
[2021-09-07 11:18] LABS: BASO # 0.1 10^3/uL (0.0-0.2); BASO % 0.5 % (0.0-1.0); EOS # 0.1 10^3/uL (0.0-0.5); EOS % 0.6 % (0.0-3.0); HEMATOCRIT 39.3 % (36.0-47.0); HEMOGLOBIN 12.9 g/dl (12.0-15.5); LYMPH % 20.1 % (24.0-44.0); MEAN CORPUSCULAR HEMOGLOBIN 28.7 pg (27.0-33.0); MEAN CORPUSCULAR HGB CONC 32.8 g/dl (32.0-36.5); MEAN CORPUSCULAR VOLUME 87.3 fl (80.0-96.0); MONO # 0.6 10^3/uL (0.0-0.8); MONO % 6.2 % (2.0-8.0); NEUTROPHILS # 7.2 10^3/uL (1.5-8.5); NEUTROPHILS % 71.9 % (36.0-66.0); PLATELET COUNT, AUTOMATED 226 10^3/uL (150-450); WHITE BLOOD COUNT 10.1 10^3/uL (4.0-10.0)
[2021-09-07 11:44] LABS: ALBUMIN 3.3 GM/DL (3.2-5.2); ALT/SGPT 35 U/L (12-78); BILIRUBIN,TOTAL 0.4 MG/DL (0.2-1.0); BLOOD UREA NITROGEN 25 MG/DL (7-18); CALCIUM LEVEL 9.3 MG/DL (8.5-10.1); CARBON DIOXIDE LEVEL 31 MEQ/L (21-32); CHLORIDE LEVEL 102 MEQ/L (98-107); CHOLESTEROL LEVEL 107 MG/DL (<200); CHOLESTEROL RISK RATIO 2.547 (<5); CREATININE FOR GFR 0.88 MG/DL (0.55-1.30); GLOMERULAR FILTRATION RATE > 60.0 (>51); GLUCOSE, FASTING 280 MG/DL (70-100); HDL CHOLESTEROL 42 MG/DL (>40); IRON (FE) 75 UG/DL (50-170); LDL CHOLESTEROL 21 MG/DL (<100); NON-HDL-C 65 MG/DL; POTASSIUM SERUM 4.7 MEQ/L (3.5-5.1); PTH INTACT 71.2 PG/ML (18.5-88.0); SODIUM LEVEL 139 MEQ/L (136-145); TOTAL 25(OH) VITAMIN D 62.2 NG/ML (30.0-100.0); TOTAL PROTEIN 6.8 GM/DL (6.4-8.2); TRIGLYCERIDES LEVEL 219 MG/DL (<150); URIC ACID 4.3 MG/DL (2.6-6.0); VITAMIN B12 LEVEL 1045 PG/ML (247-911)
[2021-09-07 11:47] LABS: CREATININE, URINE 74.7 MG/DL; MALB URINE SIEMENS 41.3 MG/L; MAU/CREAT RATIO 55.2 MCG/MG (0.0-30.0)
== END ==
LOC: M PLALAB 08:59
PROVIDERS: ATTEND Nurse Practitioner Family
DX: E78.2 Mixed hyperlipidemia (principal); E11.65 Type 2 diabetes mellitus with hyperglycemia; E55.9 Vitamin D deficiency, unspecified; Z98.84 Bariatric surgery status; E72.53 Primary hyperoxaluria

== ENCOUNTER → 2022-07-21 | Outpatient (CLI) | payer OTHER ==
[2022-07-21 12:21] LABS: ALBUMIN 3.4 GM/DL (3.2-5.2); CALCIUM LEVEL 9.5 MG/DL (8.5-10.1); CREATININE FOR GFR 1.05 MG/DL (0.55-1.30); GLOMERULAR FILTRATION RATE 59.1 (>51); PHOSPHORUS LEVEL 3.4 MG/DL (2.5-4.9); POTASSIUM SERUM 4.6 MEQ/L (3.5-5.1); URIC ACID 4.5 MG/DL (2.6-6.0)
[2022-07-21 13:15] LABS: PTH INTACT 61.7 PG/ML (18.5-88.0); TOTAL 25(OH) VITAMIN D 54.3 NG/ML (30.0-100.0)
== END ==
LOC: M PLALAB 08:30
PROVIDERS: ATTEND Internal Medicine Nephrology
DX: N20.0 Calculus of kidney (principal); R82.991 Hypocitraturia; R82.992 Hyperoxaluria; R82.993 Hyperuricosuria

== ENCOUNTER → 2022-07-21 | Outpatient (CLI) | payer OTHER ==
[2022-07-21 11:59] LABS: BASO # 0.1 10^3/uL (0.0-0.2); BASO % 0.5 % (0.0-1.0); EOS # 0.1 10^3/uL (0.0-0.5); EOS % 1.2 % (0.0-3.0); HEMATOCRIT 39.8 % (36.0-47.0); HEMOGLOBIN 13.1 g/dl (12.0-15.5); LYMPH # 1.4 10^3/uL (1.5-5.0); LYMPH % 15.4 % (24.0-44.0); MEAN CORPUSCULAR HEMOGLOBIN 28.9 pg (27.0-33.0); MEAN CORPUSCULAR HGB CONC 32.9 g/dl (32.0-36.5); MEAN CORPUSCULAR VOLUME 87.9 fl (80.0-96.0); MONO # 0.6 10^3/uL (0.0-0.8); MONO % 6.5 % (2.0-8.0); NEUTROPHILS % 75.7 % (36.0-66.0); PLATELET COUNT, AUTOMATED 230 10^3/uL (150-450); RED BLOOD COUNT 4.53 10^6/uL (4.00-5.40); WHITE BLOOD COUNT 9.2 10^3/uL (4.0-10.0)
[2022-07-21 12:31] LABS: ALBUMIN 3.5 GM/DL (3.2-5.2); ALT/SGPT 29 U/L (12-78); BILIRUBIN,TOTAL 0.7 MG/DL (0.2-1.0); BLOOD UREA NITROGEN 31 MG/DL (7-18); CALCIUM LEVEL 9.2 MG/DL (8.5-10.1); CARBON DIOXIDE LEVEL 30 MEQ/L (21-32); CHLORIDE LEVEL 100 MEQ/L (98-107); CHOLESTEROL LEVEL 92 MG/DL (<200); CHOLESTEROL RISK RATIO 2.421 (<5); CREATININE FOR GFR 1.01 MG/DL (0.55-1.30); GLOMERULAR FILTRATION RATE > 60.0 (>51); GLUCOSE, FASTING 192 MG/DL (70-100); HDL CHOLESTEROL 38 MG/DL (>40); LDL CHOLESTEROL 24 MG/DL (<100); NON-HDL-C 54 MG/DL; POTASSIUM SERUM 4.5 MEQ/L (3.5-5.1); SODIUM LEVEL 135 MEQ/L (136-145); TRIGLYCERIDES LEVEL 151 MG/DL (<150); URIC ACID 4.4 MG/DL (2.6-6.0)
[2022-07-21 13:04] LABS: CREATININE, URINE 56.6 MG/DL; MALB URINE SIEMENS 18.4 MG/L; MAU/CREAT RATIO 32.5 MCG/MG (0.0-30.0)
[2022-07-21 13:14] LABS: HEMOGLOBIN A1c 7.1 %; TOTAL 25(OH) VITAMIN D 56.5 NG/ML (30.0-100.0); VITAMIN B12 LEVEL > 2000 PG/ML (247-911)
[2022-07-21 13:15] LABS: FOLATE 6.4 NG/ML (>5.4)
== END ==
LOC: M PLALAB 08:28
PROVIDERS: ATTEND Nurse Practitioner Family
DX: E11.9 Type 2 diabetes mellitus without complications (principal); I10 Essential (primary) hypertension; E78.2 Mixed hyperlipidemia; R26.81 Unsteadiness on feet; E72.53 Primary hyperoxaluria

== ENCOUNTER → 2023-03-08 | Outpatient (REF) | payer MEDICAID | LOC: M PLALAB 14:52 | PROVIDERS: ATTEND Nurse Practitioner Family | DX: Z12.4 Encounter for screening for malignant neoplasm of cervix (principal); B37.9 Candidiasis, unspecified ==

== ENCOUNTER → 2023-03-08 | Outpatient (CLI) | payer MEDICAID, OTHER | LOC: M WHC 12:07 | PROVIDERS: ATTEND Nurse Practitioner Family | DX: Z12.31 Encounter for screening mammogram for malignant neoplasm of breast (principal); R92.8 Other abnormal and inconclusive findings on diagnostic imaging of breast ==

== ENCOUNTER → 2023-03-22 | Outpatient (CLI) | payer OTHER | LOC: M WHC 10:56 | PROVIDERS: ATTEND Nurse Practitioner Family | DX: R92.8 Other abnormal and inconclusive findings on diagnostic imaging of breast (principal); N63.42 Unspecified lump in left breast, subareolar ==

== ENCOUNTER → 2023-03-27 | Outpatient (CLI) | payer OTHER ==
[2023-03-27 18:12] LABS: URIC ACID 4.6 MG/DL (3.1-7.8)
[2023-03-27 18:15] LABS: ALBUMIN 3.6 G/DL (3.2-5.2); ALKALINE PHOSPHATASE 124 U/L (46-116); ALT/SGPT 38 U/L (7.0-40); AST/SGOT 20 U/L (<34); BILIRUBIN,TOTAL 0.5 MG/DL (0.3-1.2); BLOOD UREA NITROGEN 23 MG/DL (9-23); CALCIUM LEVEL 9.9 MG/DL (8.5-10.1); CARBON DIOXIDE LEVEL 32 MMOL/L (20-31); CHLORIDE LEVEL 102 MMOL/L (98-107); CHOLESTEROL LEVEL 127 MG/DL (<200); CHOLESTEROL RISK RATIO 2.82 (<5); CREATININE FOR GFR 0.85 MG/DL (0.55-1.30); GLOMERULAR FILTRATION RATE > 60.0 (>51); GLUCOSE, FASTING 113 MG/DL (60-100); HDL CHOLESTEROL 44.9 MG/DL (>40); LDL CHOLESTEROL 27.5 MG/DL (<100); NON-HDL-C 82.1 MG/DL; POTASSIUM SERUM 4.4 MMOL/L (3.5-5.1); SODIUM LEVEL 139 MMOL/L (136-145); TOTAL PROTEIN 7.4 G/DL (5.7-8.2); TRIGLYCERIDES LEVEL 273 MG/DL (<150)
[2023-03-27 18:17] LABS: TOTAL 25(OH) VITAMIN D 44.4 NG/ML (20.0-100.0); VITAMIN B12 LEVEL 1677 PG/ML (211-911)
[2023-03-27 18:49] LABS: HEMOGLOBIN A1c 8.1 % (4.0-6.0)
== END ==
LOC: M PLALAB 15:22
PROVIDERS: ATTEND Nurse Practitioner Family
DX: E11.9 Type 2 diabetes mellitus without complications (principal); Z98.84 Bariatric surgery status; E55.9 Vitamin D deficiency, unspecified; E72.53 Primary hyperoxaluria

== ENCOUNTER → 2023-03-29 | Outpatient (CLI) | payer OTHER ==
[2023-03-29 09:28] VITALS: BP 130/82
== END ==
LOC: M WHCPRO 08:13
PROVIDERS: ATTEND Surgery
DX: C50.212 Malignant neoplasm of upper-inner quadrant of left female breast (principal); R92.8 Other abnormal and inconclusive findings on diagnostic imaging of breast

== ENCOUNTER → 2023-04-05 | Outpatient (CLI) | payer MEDICAID, OTHER ==
[~2023-04-05] MED LIST changes: +ADME100I SC; -ALOG25TA; +ALOG25TA PO; -ATOR40TA75; +ATOR40TA75 PO; +BASA100I SC; +GABA-282 PO; +KETO2SHA8 TOP; -POTA10808; +SODI325T9 PO; +TRAM50TA2 PO
== END ==
LOC: M PLALAB 08:27
PROVIDERS: ATTEND Surgery
DX: Z13.79 Encounter for other screening for genetic and chromosomal anomalies (principal)

== ENCOUNTER → 2023-04-10 | Outpatient (CLI) | payer OTHER ==
[~2023-04-10] MED LIST changes: -ADME100I SC; +ALOG25TA; -ALOG25TA PO; +ATOR40TA75; -ATOR40TA75 PO; -BASA100I SC; -GABA-282 PO; -KETO2SHA8 TOP; +POTA10808; -SODI325T9 PO; -TRAM50TA2 PO
== END ==
LOC: M PLAIMG 08:42
PROVIDERS: ATTEND Family Medicine
DX: Z01.810 Encounter for preprocedural cardiovascular examination (principal); Z79.899 Other long term (current) drug therapy

== ENCOUNTER → 2023-04-11 | Outpatient (CLI) | payer MEDICAID, OTHER | LOC: M RAD 14:36 | PROVIDERS: ATTEND Surgery | DX: C50.912 Malignant neoplasm of unspecified site of left female breast (principal); Z53.8 Procedure and treatment not carried out for other reasons ==

== ENCOUNTER 2023-04-18 06:22 | Observation (INO) | payer OTHER ==
[~2023-04-18] VITALS: Ht 160 cm; Wt 131.1 kg
[~2023-04-18 06:22] MED LIST changes: +ADME100I SC; -ALOG25TA; +ALOG25TA PO; -ATOR40TA75; +ATOR40TA75 PO; +BASA100I SC; +GABA-282 PO; +KETO2SHA8 TOP; -POTA10808
[2023-04-18] MEDS ORDERED: LR 1,000 ML IV SCH ×3 (06:45→13:55)
[2023-04-18] MEDS ORDERED: SODI325T9 PO (07:15)
[2023-04-18] MEDS ORDERED: LIDOCAINE 1% SDV 5ML VIAL SC PRN (09:20)
[2023-04-18] MEDS ORDERED: INSULIN LISPRO (NovoLOG) PER UNIT SC PRN ×2 (09:20→13:55)
[2023-04-18] MEDS ORDERED: HEPARIN SOD (PORCINE) 5000UNITS/ML 1ML VIAL/SYRINGE SQ ONE (09:40)
[2023-04-18] MEDS ORDERED: ceFAZolin SOD 2 GM in IV 1 EA IV ONE (09:45)
[2023-04-18] MEDS ORDERED: ceFAZolin SOD 1 GM in D5W MINI-BAG PLUS 50 ML IV ONE (09:45)
[2023-04-18] MEDS ORDERED: BUPIVACAINE HCL 0.25% 30ML VIAL As Ordered ONE (09:55)
[2023-04-18] MEDS ORDERED: LIDOCAINE 1% SDV 30ML VIAL As Ordered ONE (09:55)
[2023-04-18] MEDS ORDERED: SUCCINYLCHOLINE 100MG/5ML SYRINGE As Ordered ONE (10:00)
[2023-04-18] MEDS ORDERED: propofoL 200 MG/20 ML VIAL As Ordered ONE (10:00)
[2023-04-18] MEDS ORDERED: ROCURONIUM BROMIDE 50MG/5ML VIAL As Ordered ONE (10:00)
[2023-04-18] MEDS ORDERED: MIDAZOLAM INJ 2MG/2ML VIAL As Ordered ONE (10:00)
[2023-04-18] MEDS ORDERED: fentaNYL 100 MCG/2 ML INJECTION As Ordered ONE ×2 (10:00→12:11)
[2023-04-18] MEDS ORDERED: LIDOCAINE 2% 100MG/5ML SDV (FOR ANES.) As Ordered ONE (10:00)
[2023-04-18] MEDS ORDERED: ONDANSETRON 4MG 2ML VIAL As Ordered ONE (11:01)
[2023-04-18] MEDS ORDERED: ACETAMINOPHEN 1000MG 100ML IV BAG As Ordered ONE (11:06)
[2023-04-18] MEDS ORDERED: NITROGLYCERIN 2% OINT 1 GM *U/D* PKT As Ordered ONE (12:40)
[2023-04-18] MEDS ORDERED: fentaNYL 100 MCG/2 ML INJECTION IV PRN (13:55)
[2023-04-18] MEDS ORDERED: oxyCODONE 5MG TAB PO PRN (13:55)
[2023-04-18] MEDS ORDERED: HYDROMORPHONE HCL 0.5 MG/ 0.5 ML SYRINGE IV PRN (13:55)
[2023-04-18] MEDS ORDERED: ONDANSETRON 4MG 2ML VIAL IV PRN ×2 (13:55→14:45)
[2023-04-18] MEDS ORDERED: ACETAMINOPHEN TAB 650MG DOSE (2X325MG) PO PRN (14:45)
[2023-04-18] MEDS ORDERED: traMADol 50 MG TAB PO PRN (14:45)
[2023-04-18] MEDS ORDERED: MORPHINE 2 MG/ML 1ML VIAL IV PRN (14:45)
[2023-04-18] MEDS: LR 1,000 ML IV SCH (14:45)
[2023-04-18] MEDS ORDERED: METOCLOPRAMIDE INJ 10MG/2ML VIAL IV PRN (15:10)
[2023-04-18] MEDS ORDERED: GLUCAGON INJ 1MG VIAL SC PRN (15:30)
[2023-04-18] MEDS ORDERED: DEXTROSE 50% 50ML SYRINGE IV PRN (15:30)
[2023-04-18] MEDS ORDERED: GLUCOSE 4GM CHEW TABLET PO PRN (15:30)
[2023-04-18] MEDS ORDERED: HEPARIN SOD (PORCINE) 5000UNITS/ML 1ML VIAL/SYRINGE SC SCH (15:30)
[2023-04-18 15:45] VITALS: BP 131/73
[2023-04-18 16:15] VITALS: BP 117/67
[2023-04-18 17:05] LABS: HEMATOCRIT 38.4 % (36.0-47.0); HEMOGLOBIN 12.4 g/dl (12.0-15.5); MEAN CORPUSCULAR HEMOGLOBIN 29.6 pg (27.0-33.0); MEAN CORPUSCULAR HGB CONC 32.3 g/dl (32.0-36.5); MEAN CORPUSCULAR VOLUME 91.6 fl (80.0-96.0); PLATELET COUNT, AUTOMATED 166 10^3/uL (150-450); RED BLOOD COUNT 4.19 10^6/uL (4.00-5.40); WHITE BLOOD COUNT 9.7 10^3/uL (4.0-10.0)
[2023-04-18 17:15] VITALS: BP 127/66
[2023-04-18 17:34] LABS: ALBUMIN 3.3 G/DL (3.2-5.2); ALKALINE PHOSPHATASE 94 U/L (46-116); ALT/SGPT 35 U/L (7.0-40); AST/SGOT 26 U/L (<34); BILIRUBIN,TOTAL 0.4 MG/DL (0.3-1.2); BLOOD UREA NITROGEN 28 MG/DL (9-23); CALCIUM LEVEL 8.5 MG/DL (8.5-10.1); CARBON DIOXIDE LEVEL 26 MMOL/L (20-31); CHLORIDE LEVEL 106 MMOL/L (98-107); CREATININE FOR GFR 0.78 MG/DL (0.55-1.30); GLOMERULAR FILTRATION RATE > 60.0 (>51); GLUCOSE, FASTING 274 MG/DL (60-100); POTASSIUM SERUM 4.6 MMOL/L (3.5-5.1); SODIUM LEVEL 139 MMOL/L (136-145); TOTAL PROTEIN 6.2 G/DL (5.7-8.2)
[2023-04-18] MEDS: ceFAZolin SOD 2 GM in IV 1 EA IV SCH (18:00)
[2023-04-18] MEDS: INSULIN LISPRO (NovoLOG) PER UNIT SC SCH (18:00)
[2023-04-18 18:15] VITALS: BP 127/69
[2023-04-18 19:18] VITALS: BP 136/78
[2023-04-18] MEDS: LEVEMIR (INSULIN DETEMIR) 1 UNITS/0.01ML SC SCH (20:37)
[2023-04-18] MEDS: CARVedilol 6.25 MG TAB PO SCH (20:37)
[2023-04-18] MEDS ORDERED: INSULIN LISPRO (NovoLOG) PER UNIT SC SCH (21:00)
[2023-04-18 22:32] VITALS: BP 112/62
[2023-04-18] MEDS: HEPARIN SOD (PORCINE) 5000UNITS/ML 1ML VIAL/SYRINGE SQ SCH (22:39)
[2023-04-19 02:01] VITALS: BP 115/60
[2023-04-19] MEDS: ceFAZolin SOD 2 GM in IV 1 EA IV SCH ×2 (02:36→10:23)
[2023-04-19 05:52] VITALS: BP 137/70
[2023-04-19] MEDS: LR 1,000 ML IV SCH (06:11)
[2023-04-19] MEDS: HEPARIN SOD (PORCINE) 5000UNITS/ML 1ML VIAL/SYRINGE SQ SCH ×2 (06:11→14:01)
[2023-04-19 06:16] LABS: HEMATOCRIT 34.4 % (36.0-47.0); HEMOGLOBIN 11.3 g/dl (12.0-15.5); MEAN CORPUSCULAR HEMOGLOBIN 29.3 pg (27.0-33.0); MEAN CORPUSCULAR HGB CONC 32.8 g/dl (32.0-36.5); MEAN CORPUSCULAR VOLUME 89.1 fl (80.0-96.0); PLATELET COUNT, AUTOMATED 179 10^3/uL (150-450); RED BLOOD COUNT 3.86 10^6/uL (4.00-5.40); WHITE BLOOD COUNT 11.3 10^3/uL (4.0-10.0)
[2023-04-19 06:48] LABS: BLOOD UREA NITROGEN 22 MG/DL (9-23); CALCIUM LEVEL 8.3 MG/DL (8.5-10.1); CARBON DIOXIDE LEVEL 27 MMOL/L (20-31); CHLORIDE LEVEL 107 MMOL/L (98-107); CREATININE FOR GFR 0.65 MG/DL (0.55-1.30); GLOMERULAR FILTRATION RATE > 60.0 (>51); GLUCOSE, FASTING 211 MG/DL (60-100); POTASSIUM SERUM 3.8 MMOL/L (3.5-5.1); SODIUM LEVEL 138 MMOL/L (136-145)
[2023-04-19 08:21] VITALS: BP 163/99
[2023-04-19] MEDS: CARVedilol 6.25 MG TAB PO SCH (08:21)
[2023-04-19] MEDS: LEVEMIR (INSULIN DETEMIR) 1 UNITS/0.01ML SC SCH (08:30)
[2023-04-19] MEDS: INSULIN LISPRO (NovoLOG) PER UNIT SC SCH ×2 (08:31→12:19)
[2023-04-19] MEDS ORDERED: ATORVASTATIN 20 MG TAB PO SCH (09:00)
[2023-04-19] MEDS ORDERED: allopurinoL 100 MG TAB PO SCH (09:00)
[2023-04-19 10:00] VITALS: BP 123/78
[2023-04-19] MEDS ORDERED: TRAM50TA2 PO (11:56)
[2023-04-19 14:00] VITALS: BP 124/77
== END 2023-04-19 16:20 | disposition home or self-care (01) ==
LOC: M SDC 06:22 → M MS5PR 14:45
PROVIDERS: ADMIT Surgery; ATTEND Surgery
DX: D05.12 Intraductal carcinoma in situ of left breast (principal); I10 Essential (primary) hypertension; E78.2 Mixed hyperlipidemia; E11.65 Type 2 diabetes mellitus with hyperglycemia; Z86.718 Personal history of other venous thrombosis and embolism; Z86.14 Personal history of Methicillin resistant Staphylococcus aureus infection; G47.33 Obstructive sleep apnea (adult) (pediatric); M19.90 Unspecified osteoarthritis, unspecified site; M51.37 Other intervertebral disc degeneration, lumbosacral region; Z98.84 Bariatric surgery status; Z90.5 Acquired absence of kidney; E66.01 Morbid (severe) obesity due to excess calories; Z68.43 Body mass index [BMI] 50.0-59.9, adult; Z91.048 Other nonmedicinal substance allergy status; Z79.899 Other long term (current) drug therapy; Z79.4 Long term (current) use of insulin; Z79.84 Long term (current) use of oral hypoglycemic drugs
CPT/HCPCS: 19302; 36415; 76942; 78195; 80048; 80053; 81025; 85027; 86850; 86900; 86901; 88307; 96365; 96366; 96372; 96376; A4648; A9520; J0131; J0330; J0690; J1100; J1815; J2250; J2405; J2765; J3010; S0020

== ENCOUNTER → 2023-05-26 | Outpatient (CLI) | payer OTHER ==
[~2023-05-26] MED LIST changes: +B-12100010 PO; +NOXI1TAB PO; +SODI325T9 PO; +STEG15TA; +TIZA10TA; +TRAM50TA2 PO
== END ==
LOC: M ONCR 08:16
PROVIDERS: ATTEND General Practice
DX: C50.112 Malignant neoplasm of central portion of left female breast (principal); E11.9 Type 2 diabetes mellitus without complications; E78.5 Hyperlipidemia, unspecified; I10 Essential (primary) hypertension; G47.33 Obstructive sleep apnea (adult) (pediatric); M51.36 Other intervertebral disc degeneration, lumbar region; Z71.2 Person consulting for explanation of examination or test findings; Z79.4 Long term (current) use of insulin; Z79.84 Long term (current) use of oral hypoglycemic drugs; Z79.899 Other long term (current) drug therapy; Z80.3 Family history of malignant neoplasm of breast; Z91.048 Other nonmedicinal substance allergy status; Z98.84 Bariatric surgery status; Z98.890 Other specified postprocedural states

== ENCOUNTER → 2023-06-07 | Outpatient (CLI) | payer OTHER | LOC: M WHC 08:13 | PROVIDERS: ATTEND Internal Medicine Hematology & Oncology | DX: C50.919 Malignant neoplasm of unspecified site of unspecified female breast (principal); M85.851 Other specified disorders of bone density and structure, right thigh; M85.852 Other specified disorders of bone density and structure, left thigh ==

== ENCOUNTER → 2023-06-26 | Outpatient (RCR) | payer OTHER ==
[~2023-06-26] MED LIST changes: +ALLO300T2 PO; -GABA-283 PO; +GABA-284 PO; -STEG15TA; +STEG15TA PO; -TIZA10TA; +TIZA10TA PO
== END ==
LOC: M ONCR 06-08 09:08
PROVIDERS: ATTEND General Practice
DX: C50.112 Malignant neoplasm of central portion of left female breast (principal)

== ENCOUNTER 2023-07-17 15:49 | Outpatient (RCR) | payer OTHER ==
[~2023-07-17 15:49] MED LIST changes: +NYST1POW9 TOP
== END 2023-07-27 ==
LOC: M ONCR 15:49
PROVIDERS: ATTEND General Practice
DX: Z51.0 Encounter for antineoplastic radiation therapy (principal); C50.112 Malignant neoplasm of central portion of left female breast

== ENCOUNTER → 2023-07-19 | Outpatient (REF) | payer OTHER | LOC: M SFHCPLAZ 11:35 | PROVIDERS: ATTEND Nurse Practitioner Family | DX: Z53.9 Procedure and treatment not carried out, unspecified reason (principal) ==

== ENCOUNTER → 2024-01-17 | Outpatient (CLI) | payer OTHER | LOC: M ONCR 09:59 | PROVIDERS: ATTEND General Practice | DX: C50.112 Malignant neoplasm of central portion of left female breast (principal); L59.8 Other specified disorders of the skin and subcutaneous tissue related to radiation; Z79.811 Long term (current) use of aromatase inhibitors; Z91.048 Other nonmedicinal substance allergy status; Z92.3 Personal history of irradiation ==

== ENCOUNTER → 2024-03-25 | Outpatient (CLI) | payer OTHER | LOC: M WHC 12:39 | PROVIDERS: ATTEND Nurse Practitioner Women's Health | DX: C50.912 Malignant neoplasm of unspecified site of left female breast (principal) ==

== ENCOUNTER → 2024-07-19 | Outpatient (CLI) | payer OTHER | LOC: M ONCR 09:09 | PROVIDERS: ATTEND General Practice | DX: C50.112 Malignant neoplasm of central portion of left female breast (principal); Z79.4 Long term (current) use of insulin; Z79.620 Long term (current) use of immunosuppressive biologic; Z79.811 Long term (current) use of aromatase inhibitors; Z79.84 Long term (current) use of oral hypoglycemic drugs; Z79.899 Other long term (current) drug therapy; Z91.048 Other nonmedicinal substance allergy status; Z92.3 Personal history of irradiation; Z98.890 Other specified postprocedural states ==

== ENCOUNTER 2024-11-17 05:54 | Emergency (ER) | payer OTHER ==
[~2024-11-17] VITALS: Ht 160 cm; Wt 131.4 kg
[~2024-11-17 05:54] MED LIST changes: +GABA-1172 PO; -GABA-282 PO; +NYST1POW3 TOP; -NYST1POW9 TOP; -POTA10808 PO; +POTA10809 PO
[2024-11-17 09:14] VITALS: BP 163/78; TEMP 97.8; O2SAT 97
== END 2024-11-17 09:22 | disposition home or self-care (01) ==
LOC: M ED 05:54 → EDBD 05:54 → M ED 09:22
DX: S99.912A Unspecified injury of left ankle, initial encounter (principal); Y92.019 Unspecified place in single-family (private) house as the place of occurrence of the external cause; Y93.9 Activity, unspecified; Y99.9 Unspecified external cause status; E11.9 Type 2 diabetes mellitus without complications; I10 Essential (primary) hypertension; G51.0 Bell's palsy; Z91.048 Other nonmedicinal substance allergy status; Z79.4 Long term (current) use of insulin; Z79.899 Other long term (current) drug therapy

== ENCOUNTER 2025-01-08 22:40 | Emergency (ER) | payer OTHER ==
[~2025-01-08] VITALS: Ht 160 cm; Wt 131.4 kg
[2025-01-09 03:01] LABS: APPEARANCE, URINE CLOUDY (CLEAR); BACTERIA, URINE AUTO 1+ (NEGATIVE); BILIRUBIN, URINE AUTO NEGATIVE (NEGATIVE); BLOOD, URINE BLOOD NEGATIVE (NEGATIVE); COLOR, URINE YELLOW (YELLOW); GLUCOSE, URINE (UA) AUTO 3+ mg/dL (NEGATIVE); KETONE, URINE AUTO NEGATIVE (NEGATIVE); LEUKOCYTE ESTERASE, URINE AUTO 3+ (NEGATIVE); NITRITE, URINE AUTO NEGATIVE (NEGATIVE); PROTEIN, URINE AUTO 2+ mg/dL (NEGATIVE); RBC, URINE AUTO 9 /HPF (0-3); SPECIFIC GRAVITY URINE AUTO 1.016 (1.002-1.035); SQUAMOUS EPITHELIAL CELL UR AU 1 /HPF (0-6); UROBILINOGEN, URINE AUTO 0.2 mg/dL (0.0-2.0); WBC, URINE AUTO TNTC /HPF (0-3)
[2025-01-09] MEDS: diazePAM 10MG/2ML SYRINGE IM ONE (04:31)
[2025-01-09] MEDS ORDERED: VALI5TAB PO (05:57)
[2025-01-09 06:00] VITALS: BP 140/67
[2025-01-09 06:10] VITALS: TEMP 98; O2SAT 97
== END 2025-01-09 06:20 | disposition home or self-care (01) ==
LOC: M ED 22:40 → EDBD 22:40 → M ED 01-09 06:20
DX: M62.838 Other muscle spasm (principal); Z91.040 Latex allergy status; Z79.4 Long term (current) use of insulin; Z79.899 Other long term (current) drug therapy
CPT/HCPCS: 72110; 74176; 81001; 96372; 99284; J3360

== ENCOUNTER → 2025-04-02 | Outpatient (CLI) | payer OTHER ==
[~2025-04-02] MED LIST changes: +KETO120S5; +KETO120S5 TOP; -KETO2SHA8; -KETO2SHA8 TOP; +VALI5TAB PO
== END ==
LOC: M WHC 13:09
PROVIDERS: ATTEND Nurse Practitioner Family
DX: Z85.3 Personal history of malignant neoplasm of breast (principal); R92.333 Mammographic heterogeneous density, bilateral breasts; Z98.890 Other specified postprocedural states

== ENCOUNTER → 2025-05-29 | Outpatient (CLI) | payer OTHER | LOC: M PLAIMG 11:10 | PROVIDERS: ATTEND Physician Assistant | DX: I50.32 Chronic diastolic (congestive) heart failure (principal); I08.8 Other rheumatic multiple valve diseases ==

== ENCOUNTER → 2025-07-22 | Outpatient (CLI) | payer OTHER ==
[~2025-07-22] MED LIST changes: +ACYC200C10 PO; -ACYC200C8 PO
== END ==
LOC: M ONCR 09:26
PROVIDERS: ATTEND General Practice
DX: Z08 Encounter for follow-up examination after completed treatment for malignant neoplasm (principal); Z85.3 Personal history of malignant neoplasm of breast; Z98.890 Other specified postprocedural states; Z92.3 Personal history of irradiation; Z79.4 Long term (current) use of insulin; Z79.620 Long term (current) use of immunosuppressive biologic; Z79.811 Long term (current) use of aromatase inhibitors; Z79.899 Other long term (current) drug therapy; Z91.048 Other nonmedicinal substance allergy status

== ENCOUNTER → 2025-08-08 | Outpatient (CLI) | payer OTHER ==
[2025-08-08 15:22] LABS: BASO # 0.1 10^3/uL (0.0-0.2); BASO % 0.5 % (0.0-1.0); EOS # 0.1 10^3/uL (0.0-0.5); EOS % 0.6 % (0.0-3.0); LYMPH # 2.0 10^3/uL (1.5-5.0); LYMPH % 19.9 % (24.0-44.0); MONO # 0.6 10^3/uL (0.0-0.8); MONO % 6.4 % (2.0-8.0); NEUTROPHILS # 7.1 10^3/uL (1.5-8.5); NEUTROPHILS % 72.1 % (36.0-66.0); PLATELET COUNT, AUTOMATED 232 10^3/uL (150-450)
[2025-08-08 15:29] LABS: TOTAL 25(OH) VITAMIN D 54.7 NG/ML (20.0-100.0)
[2025-08-08 15:30] LABS: IRON (FE) 43 UG/DL (50-170); PERCENT SATURATION 16.4 % (13.2-45.0)
[2025-08-08 15:31] LABS: ALT/SGPT 22 U/L (7.0-40); AST/SGOT 22 U/L (<34); CALCIUM LEVEL 9.3 MG/DL (8.5-10.1); CARBON DIOXIDE LEVEL 32 MMOL/L (20-31); CHLORIDE LEVEL 104 MMOL/L (98-107); CHOLESTEROL LEVEL 107 MG/DL (<200); CHOLESTEROL RISK RATIO 2.54 (<5); CREATININE FOR GFR 1.03 MG/DL (0.55-1.30); GLOMERULAR FILTRATION RATE 64.6 (>51); LDL CHOLESTEROL 40.8 MG/DL (<100); NON-HDL-C 65.0 MG/DL; POTASSIUM SERUM 5.0 MMOL/L (3.5-5.1); SODIUM LEVEL 145 MMOL/L (136-145); TRIGLYCERIDES LEVEL 121 MG/DL (<150)
[2025-08-08 15:33] LABS: FREE T4 1.36 NG/DL (0.89-1.76)
[2025-08-08 15:42] LABS: VITAMIN B12 LEVEL > 2000 PG/ML (211-911)
== END ==
LOC: M PLALAB 12:05
PROVIDERS: ATTEND Nurse Practitioner Family
DX: E11.9 Type 2 diabetes mellitus without complications (principal); D63.1 Anemia in chronic kidney disease; E78.2 Mixed hyperlipidemia; E72.53 Primary hyperoxaluria

== ENCOUNTER → 2025-09-08 | Outpatient (CLI) | payer OTHER ==
[2025-09-08 15:24] LABS: ESTIMATED AVERAGE GLUCOSE 169.0 MG/DL (60-110)
== END ==
LOC: M PLALAB 09:25
PROVIDERS: ATTEND Nurse Practitioner Family
DX: E11.9 Type 2 diabetes mellitus without complications (principal)